=== PATIENT | female | born 1935 | race Caucasian/White ===

== ENCOUNTER 2020-05-04 13:45 | Outpatient (CLI) | payer MEDICARE, OTHER, SELFPAY ==
--- NOTE | 2020-05-04 13:56 | XRR_ITS ---
PROCEDURE INFORMATION: Exam: XR Abdomen, 1 View Exam date and time: 05/04/2020 2:18 PM Age: 85 years old Clinical indication: Condition or disease; Kidney or ureter condition; Other: Uvj stone; Prior surgery; Surgery type: Gb hyst; Patient HX: Stone present on a CT scan done at a different facility TECHNIQUE: Imaging protocol: XR of the abdomen. Views: Frontal supine view of the abdomen. 1 View. COMPARISON: CT abdomen pelvis con [id number] 05/01/2020 6:32 AM FINDINGS: Gastrointestinal tract: Normal. No bowel dilation. Metallic surgical clips right upper quadrant consistent with cholecystectomy. Bones/joints: Unremarkable. XR/XR KUB [id number] IMPRESSION: 1. No acute findings. 2. Status post cholecystectomy
== END 2020-05-04 13:46 | disposition home or self-care (01) ==
PROVIDERS: PCP Physician Assistant Medical; Visit Provider Urology
DX: N20.1 Calculus of ureter (principal); Z90.49 Acquired absence of other specified parts of digestive tract
CPT/HCPCS: 74018; 81003

== ENCOUNTER 2020-05-09 07:04 | Outpatient (CLI) | payer MEDICARE, OTHER, SELFPAY ==
--- NOTE | 2020-05-09 07:08 | XRR_ITS ---
PROCEDURE INFORMATION: Exam: XR Abdomen, 1 View Exam date and time: 05/09/2020 7:09 AM Age: 85 years old Clinical indication: Condition or disease; Kidney or ureter condition; Calculus (stone) in ureter; Prior surgery; Surgery type: Bladder, gb; Additional info: Uvj stone TECHNIQUE: Imaging protocol: XR of the abdomen. Views: Frontal supine view of the abdomen. 1 View. COMPARISON: CR XR KUB [id number] 05/04/2020 2:19 PM FINDINGS: Gastrointestinal tract: Normal. No bowel dilation. Organs: There is a clip in the right upper quadrant consistent cholecystectomy. No renal calcifications are seen. Bones/joints: Degenerative changes are present in the spine with sclerosis and joint space narrowing. XR/XR KUB [id number] IMPRESSION: No acute abnormality. No renal calcifications are seen.
== END 2020-05-09 07:05 | disposition home or self-care (01) ==
PROVIDERS: PCP Physician Assistant Medical; Visit Provider Urology
DX: N20.1 Calculus of ureter (principal)
CPT/HCPCS: 74018; 81003

== ENCOUNTER 2020-08-10 07:32 | Outpatient (CLI) | payer MEDICARE, OTHER, SELFPAY ==
--- NOTE | 2020-08-10 | XR_ITS ---
WS: [id number] KUB, 08/10/2020 Clinical Data: stone Comparison: KUB, 05/09/2020. Findings: No abnormal intraabdominal masses or calcifications are seen. There is no dilatated small bowel or ev idence of obstruction. There is a large amount of fecal material throughout the colon. There are clips in the right upper qu adrant from a cholecystectomy. XR/XR KUB [id number] Impression: Negative KUB.
== END 2020-08-10 07:33 | disposition home or self-care (01) ==
PROVIDERS: PCP Physician Assistant Medical; Visit Provider Urology
DX: N20.9 Urinary calculus, unspecified (principal)
CPT/HCPCS: 74018; 81003

== ENCOUNTER → 2020-10-19 14:34 | Outpatient (BNVA) | payer MEDICARE, OTHER, SELFPAY | PROVIDERS: PCP Physician Assistant Medical; Visit Provider Podiatrist Foot & Ankle Surgery | DX: M25.572 Pain in left ankle and joints of left foot (principal); M19.011 Primary osteoarthritis, right shoulder; M21.612 Bunion of left foot; M25.571 Pain in right ankle and joints of right foot | CPT/HCPCS: 73630 ==

== ENCOUNTER 2020-10-19 15:52 | Outpatient (CLI) | payer MEDICARE, OTHER, SELFPAY | END 2020-10-19 15:53 | disposition home or self-care (01) | LOC: SPT 15:53 | PROVIDERS: PCP Physician Assistant Medical; Visit Provider Podiatrist Foot & Ankle Surgery | DX: Z46.89 Encounter for fitting and adjustment of other specified devices (principal); M76.71 Peroneal tendinitis, right leg | CPT/HCPCS: 97760; L1902 ==

== ENCOUNTER 2021-11-13 13:45 | Emergency (ER) | payer MEDICARE, SELFPAY ==
[2021-11-13 13:58] VITALS: BP 193/93; PULSE 84; RESP 16; TEMP 36.1; O2SAT 98; BMI 41.1
--- NOTE | 2021-11-13 14:35 | XRR_ITS ---
PROCEDURE INFORMATION: Exam: XR Left Ankle Exam date and time: 11/13/2021 3:17 PM Age: 86 years old Clinical indication: Pain; Ankle; Left TECHNIQUE: Imaging protocol: Radiologic exam of the Left ankle. Views: 3 or more views. COMPARISON: [place] [id number] ORTH 10/19/2020 2:42 PM FINDINGS: Bones/joints: Mild DJD/joint space narrowing along the medial aspect of the ankle mortise. Negative for fracture. Small calcaneal spur and enthesophyte at the Achilles insertion. Soft tissues: Normal. XR/XR ankle LT min 3V* [id number] IMPRESSION: No acute findings. Mild DJD of the tibiotalar joint.
--- NOTE | 2021-11-13 14:35 | XRR_ITS ---
PROCEDURE INFORMATION: Exam: XR Left Hip Exam date and time: 11/13/2021 3:17 PM Age: 86 years old Clinical indication: Hip pain; Left hip TECHNIQUE: Imaging protocol: Radiologic exam of the Left hip. Views: 2 or 3 views hip with pelvis when performed. COMPARISON: CT abdomen pelvis wo con [id number] 05/01/2020 6:32 AM FINDINGS: Bones/joints: Mild joint space narrowing/DJD of the left hip. No acute fracture. Soft tissues: Unremarkable. XR/XR hip LT 2-3V wo/w pel* [id number] IMPRESSION: No acute findings. Mild DJD of the left hip.
--- NOTE | 2021-11-13 15:14 | W.ED.EXTPRO ---
HPI - Extremity Problem General: Chief complaint: Extremity Problem,Nontraumatic Stated complaint: left leg/ hip and left ankle pain Time Seen by Provider: 11/13/21 14:34 Source: patient Mode of arrival: ambulatory Limitations: no limitations History of Present Illness: 86-year-old female presents emergency room for left hip pain she also relates that being in her ankle and talk to her in-depth she states about 6 months ago she fell who since then he has had pain radiating out of her buttock down her legs through her hip and into her lateral thigh all the way down to the foot at times. When she is up and active its worse. She has not really found anything that is made it better. She denies any difficulty with bowel or bladder no urinary retention no fecal incontinence. She is not noted any rash. She had previously had difficulty with her hip but states this feels somewhat different. She is not had any imaging or evaluation for this prior to today. MD Complaint: extremity pain Onset (ago): minute(s) Pain Consistency: constant Location: left Radiation: none Relieving factors: nothing Exacerbating factors: nothing Associated symptoms: Deny chest pain, fever(s) or rash Review of Systems Const: Denies: fever(s), chills, body aches, change in appetite, fatigue or malaise ENMT: Denies: throat pain, ear or mastoid pain, nasal discharge or nasal congestion Card: Denies: chest pain, edema, dyspnea on exertion or orthopnea Resp: Denies: dyspnea, productive cough or non-productive cough GI: Denies: abdominal pain, nausea, vomiting, hematemesis, coffee ground emesis, diarrhea, constipation, bloating, hematochezia or melena : Denies: flank pain, difficulty voiding, dysuria, urinary frequency or urinary urgency Musc: Reports: back pain (Radiating to the buttock and down the left leg) and extremity pain Skin/Breast: Denies: rash or pruritus PFSH ED PFSH: Medical History Anxiety and depression Breast cancer Calculus of ureterovesical junction (UVJ) COPD (chronic obstructive pulmonary disease) GERD (gastroesophageal reflux disease) Hypertension Hypothyroidism Motion sickness Osteoporosis Surgical History History of arthroscopy of both knees History of lumpectomy of left breast Hx of appendectomy Hx of bladder repair surgery Hx of breast reconstruction Hx of cholecystectomy Hx of hysterectomy Hx of mastectomy Hx of total knee arthroplasty Family History Mother , AT AGE 75 CAD (coronary artery disease) Cancer BREAST Father , AT AGE 73 Rupture of bowel Social History Smoking and tobacco status: never smoked Alcohol intake: never Adopted: No Caregiver/support person: No Marital status: / Current occupational status: retired History of recent travel: No Physical Exam Const: GENERAL APPEARANCE: cooperative and comfortable ORIENTATION/CONSCIOUSNESS: Yes awake, Yes oriented to person, Yes oriented to place and Yes oriented to time HENMT: COMMON NORMALS: normocephalic and atraumatic HEAD & SCALP: normocephalic and atraumatic Neck/C-Spine: COMMON NORMALS: no JVD Resp: COMMON NORMALS: normal respiratory effort, No retractions, No use of accessory muscles and clear to auscultation bilaterally AUSCULTATION: clear to auscultation bilaterally Cardio: COMMON NORMALS: no JVD, regular rate, regular rhythm and No murmurs present (Cardio) RATE: regular rate RHYTHM: regular rhythm GI: COMMON NORMALS: Soft to palpation and No hepatosplenomegaly present AUSCULTATION: Yes normoactive bowel sounds PALPATION: Yes Soft to palpation, No Tenderness to palpation present (GI), No Guarding due to palpation present (GI) and Yes No hepatosplenomegaly present Extremity: COMMON NORMALS: normal to inspection, capillary refill normal, no clubbing, cyanosis or edema, no calf tenderness and no pedal edema OTHER: Difficulty elicit deep tendon reflexes reflexes at patellar tendon dorsum plantar flex strength 5 of 5 straight leg raising positive on the left sensation normal Neuro: SENSORIUM/ORIENTATION: Yes oriented to person, Yes oriented to place and Yes oriented to time Skin: COMMON NORMALS: no rashes or lesions noted GENERAL SKIN EXAM: no rashes or lesions noted Course Vital Signs: Vital signs: Vital Signs Temperature 97.0 F L 11/13/21 13:58 Pulse Rate 84 11/13/21 13:58 Respiratory Rate 16 11/13/21 13:58 Blood Pressure 193/93 11/13/21 13:58 Pulse Oximetry 98 11/13/21 13:58 MDM - Extremity (Nontraumatic) Medical Decision Making With lumbar radiculopathy no signs of cauda equina discharged home with medications as below follow-up with primary care for consideration of advanced imaging Medical Records I reviewed the patient's medical records. Lab Data I reviewed the patient's lab results. Radiology Impressions Ankle X-Ray 11/13/21 14:35 IMPRESSION: No acute findings. Mild DJD of the tibiotalar joint. Hip/Pelvis X-Ray 11/13/21 14:35 IMPRESSION: No acute findings. Mild DJD of the left hip. Discharge Plan Discharge Patient Disposition: Home Clinical Impression: Left lumbar radiculopathy Condition: Stable Prescriptions: New prednisone 20 mg tablet 20 mg PO TID Qty: 15 0RF Rx Instructions: 1 p.o. 3 times daily x3 days, 1 p.o. twice daily x2 days, 1 p.o. daily x2 days diclofenac sodium 75 mg tablet,delayed release (DR/EC) 75 mg PO Q12H PRN (Reason: pain) Qty: 20 0RF tizanidine 4 mg capsule 4 mg PO Q8H PRN (Reason: muscle spasticity) Qty: 30 0RF No Action (DME) ASO on right See Rx Instructions .Route .MEDSUPPLY Qty: 1 0RF Rx Instructions: As directed sertraline 100 mg tablet 150 mg PO DAILY 0RF levothyroxine 88 mcg capsule 88 mcg PO DAILY 0RF multivitamin Tablet 1 tab PO DAILY 0RF ascorbic acid (vitamin C) 1,000 mg tablet 500 mg PO DAILY 0RF calcium carbonate-vitamin D3 [Calcium 600 with Vitamin D3] 600 mg(1,500mg) -500 unit capsule 1 cap PO DAILY 0RF magnesium oxide 500 mg tablet 500 mg PO BID 0RF tizanidine 2 mg tablet 2 mg PO TID 0RF lisinopril 5 mg tablet 5 mg PO DAILY 0RF Discharge Orders: Discharge ED (Routine); Ordered 11/13/21 Ordered By: Franc Christine Discharge Diet: Usual diet Discharge Activity: Limit activity as instructed Patient Instructions: Opioid Safety Activity Restrictions/Additional Instructions: Avoid heavy lifting bending or stooping or working below the waist. Do not lift more than 20 to 30 pounds at very most. Follow-up with your primary care doctor for further evaluation. Coding Level of Care Code ED [employer] Supervisor for Chg Fwd Exam Comprehensive
[2021-11-13] MEDS: ketorolac 30 mg/mL INJ IVP (15:57)
[2021-11-13] MEDS: dexamethasone 10 mg/mL INJ IM (15:57)
== END 2021-11-13 16:00 | disposition home or self-care (01) ==
PROVIDERS: Emergency Provider Family Medicine
DX: M54.16 Radiculopathy, lumbar region (principal); Z85.3 Personal history of malignant neoplasm of breast; J44.9 Chronic obstructive pulmonary disease, unspecified; I10 Essential (primary) hypertension
CPT/HCPCS: 73502; 73610; 96372; 96374; 99284; J1100; J1885

== ENCOUNTER → 2022-07-30 13:13 | Outpatient (BNVA) | payer MEDICARE, SELFPAY | PROVIDERS: Visit Provider Podiatrist Foot & Ankle Surgery | DX: M76.821 Posterior tibial tendinitis, right leg (principal) | CPT/HCPCS: 73610; 99213 ==

== ENCOUNTER 2022-07-30 15:15 | Outpatient (CLI) | payer MEDICARE, SELFPAY | END 2022-07-30 15:16 | disposition home or self-care (01) | LOC: SPT 15:16 | PROVIDERS: Visit Provider Podiatrist Foot & Ankle Surgery | DX: Z46.89 Encounter for fitting and adjustment of other specified devices (principal); M76.821 Posterior tibial tendinitis, right leg | CPT/HCPCS: 97760; L1902 ==

== ENCOUNTER → 2022-09-03 14:29 | Outpatient (BNVA) | payer MEDICARE, SELFPAY | PROVIDERS: Visit Provider Podiatrist Foot & Ankle Surgery | DX: M76.821 Posterior tibial tendinitis, right leg (principal) | CPT/HCPCS: 99213 ==

== ENCOUNTER → 2022-10-16 14:52 | Outpatient (BNVA) | payer MEDICARE, SELFPAY | PROVIDERS: Visit Provider Podiatrist Foot & Ankle Surgery | DX: M76.821 Posterior tibial tendinitis, right leg (principal) | CPT/HCPCS: 99213 ==

== ENCOUNTER → 2023-08-13 09:25 | Outpatient (BNVA) | payer MEDICARE, SELFPAY | PROVIDERS: PCP Registered Nurse; Referring Provider Nurse Practitioner Family; Visit Provider Student in an Organized Health Care Education/Training Program | DX: S52.501A Unspecified fracture of the lower end of right radius, initial encounter for closed fracture (principal); W18.30XA Fall on same level, unspecified, initial encounter; Z46.89 Encounter for fitting and adjustment of other specified devices; S52.591D Other fractures of lower end of right radius, subsequent encounter for closed fracture with routine healing; X58.XXXD Exposure to other specified factors, subsequent encounter | CPT/HCPCS: 73110; 97760; 99204; L3982 ==

== ENCOUNTER 2023-08-13 12:03 | Outpatient (CLI) | payer MEDICARE, SELFPAY | END 2023-08-13 12:04 | disposition home or self-care (01) | LOC: SPT 12:04 | PROVIDERS: PCP Registered Nurse; Visit Provider Student in an Organized Health Care Education/Training Program | DX: Z46.89 Encounter for fitting and adjustment of other specified devices (principal); S52.591D Other fractures of lower end of right radius, subsequent encounter for closed fracture with routine healing; X58.XXXD Exposure to other specified factors, subsequent encounter; S52.501A Unspecified fracture of the lower end of right radius, initial encounter for closed fracture; W18.30XA Fall on same level, unspecified, initial encounter | CPT/HCPCS: 97760; 99204; L3982 ==

== ENCOUNTER → 2023-09-24 08:50 | Outpatient (BNVA) | payer MEDICARE, SELFPAY | PROVIDERS: PCP Registered Nurse; Visit Provider Physician Assistant | DX: S52.501D Unspecified fracture of the lower end of right radius, subsequent encounter for closed fracture with routine healing; X58.XXXD Exposure to other specified factors, subsequent encounter | CPT/HCPCS: 73110 ==

== ENCOUNTER 2023-09-24 09:43 | Outpatient (CLI) | payer MEDICARE, SELFPAY | END 2023-09-24 09:44 | disposition home or self-care (01) | LOC: SPT 09:43 | PROVIDERS: PCP Registered Nurse; Visit Provider Physician Assistant | DX: Z46.89 Encounter for fitting and adjustment of other specified devices (principal); S52.501D Unspecified fracture of the lower end of right radius, subsequent encounter for closed fracture with routine healing; X58.XXXD Exposure to other specified factors, subsequent encounter | CPT/HCPCS: 99213; L3908 ==